=== PATIENT | male | born 1960 | race African-American/Black ===

== ENCOUNTER → 2021-03-08 | Outpatient (CLI) | payer OTHER | LOC: CAT 09:22 | PROVIDERS: ATTEND Family Medicine | DX: Z13.6 Encounter for screening for cardiovascular disorders (principal); I25.10 Atherosclerotic heart disease of native coronary artery without angina pectoris ==

== ENCOUNTER → 2021-03-16 | Outpatient (CLI) | payer BC, OTHER | LOC: SJCVCIMAG 11:11 | PROVIDERS: ATTEND Internal Medicine | DX: I10 Essential (primary) hypertension (principal); R06.00 Dyspnea, unspecified; R07.9 Chest pain, unspecified ==